=== PATIENT | female | born 1955 | race Caucasian/White ===

== ENCOUNTER 2018-12-13 21:45 | Emergency (ER) | payer BC, OTHER ==
[2018-12-13] MEDS ORDERED: METOCLOPRAMIDE HCL INJECTION 10 MG/2 ML VIAL IVPUSH ONE (21:52)
[2018-12-13 21:57] VITALS: BP 150/90; PULSE 88; TEMP 98; BMI 20.9
[2018-12-13] MEDS ORDERED: SODIUM CHLORIDE 0.9% 500 ML INFUS.BAG IV ONE ×2 (21:57→23:13)
[2018-12-13] MEDS ORDERED: METOCLOPRAMIDE HCL INJECTION 10 MG/2 ML VIAL ONE (22:03)
[2018-12-13 22:13] LABS: BASO % 0.6 % (0-2.0); EOS % 2.7 % (0-4.5); HEMATOCRIT 44.1 % (32.4-45.2); HEMOGLOBIN 14.3 GM/dl (10.7-15.3); LYMPH % 26.1 % (8-40); MCH 30.2 pg (25.7-33.7); MCHC 32.4 g/dl (32.0-36.0); MEAN CELL VOLUME 93.1 fl (80-96); MEAN PLT VOLUME 8.1 fl (7.5-11.1); MONO % 5.5 % (3.8-10.2); NEUT % 65.1 % (42.8-82.8); PLATELET COUNT 284 K/MM3 (134-434); RBC 4.74 M/mm3 (3.60-5.2); RDW 12.6 % (11.6-15.6); WHITE BLOOD COUNT 7.1 K/mm3 (4.0-10.8)
[2018-12-13 22:24] LABS: ACTIVATED PTT 30.5 SECONDS (25.2-36.5)
[2018-12-13 22:28] LABS: INR 1.08 (0.82-1.09); PROTHROMBIN TIME (PATIENT) 12.1 SEC (10.2-13.0)
[2018-12-13] MEDS ORDERED: ONDANSETRON 4 MG/2 ML VIAL IVPB ONE (22:33)
[2018-12-13] MEDS ORDERED: ONDANSETRON 4 MG/2 ML VIAL ONE (22:34)
[2018-12-13 22:39] LABS: ALBUMIN 4.3 g/dl (3.4-5.0); BILIRUBIN,TOTAL 0.8 mg/dl (0.2-1); CALCIUM 9.6 mg/dl (8.5-10); CREATININE 0.9 mg/dl (0.55-1.3); POTASSIUM 3.5 mmol/L (3.5-5.1); TOT PROT 7.4 g/dl (6.4-8.2)
[2018-12-13] MEDS ORDERED: PROCHLORPERAZINE INJECTION 10 MG/2 ML VIAL IVPB ONE (23:12)
[2018-12-13] MEDS ORDERED: DEXAMETHASONE SOD PHOSPHATE 10 MG/1 ML VIAL IVPUSH ONE (23:12)
[2018-12-13] MEDS ORDERED: PROCHLORPERAZINE INJECTION 10 MG/2 ML VIAL ONE (23:41)
[2018-12-13] MEDS ORDERED: DEXAMETHASONE SOD PHOSPHATE 10 MG/1 ML VIAL ONE (23:41)
--- NOTE | 2018-12-14 06:16 | PDOC ---
Documentation entered by Venecia Salmeron SCRIBE, acting as scribe for Daniel Martinez MD. Daniel Martinez MD: This documentation has been prepared by the Faviola valencia Xhesika, SCRIBE, under my direction and personally reviewed by me in its entirety. I confirm that the documentation accurately reflects all work, treatment, procedures, and medical decision making performed by me. History of Present Illness - General Chief Complaint: Pain, Acute Stated Complaint: HEADACHE, NAUSEA History Source: Patient Exam Limitations: No Limitations - History of Present Illness Initial Comments: 12/13/18 22:03 The patient is a 63 year old female, with no significant PMH of who presents to the emergency department with 2 hours of nausea and severe headache. The patient states she was walking through the park with her daughter, went home to see her and the difference between the heat and the air conditioner made her nauseous. The patient notes she endorsed multiple episodes of vomiting. The patient states she ate out a couple of times during the holiday weekend. The patient also notes she has been endorsing 4 days of RUQ dull pain that is associated with her doing pilates and is not a concern for her at the moment. The patient states she has never experienced a headache before. The patient denies chest pain, shortness of breath, dizziness. Denies fever, chills, diarrhea and constipation. Denies dysuria, frequency, urgency and hematuria. Allergies: Sulfa Past History - Past Medical History Allergies/Adverse Reactions: Allergies Allergy/AdvReac Type Severity Reaction Status Date / Time Sulfa (Sulfonamide Allergy Verified 12/13/18 21:46 Antibiotics) Home Medications: Ambulatory Orders NK [No Known Home Medication] 12/13/18 Review of Systems - Review of Systems Able to Perform ROS?: Yes Comments:: 12/13/18 22:06 GENERAL/CONSTITUTIONAL: No fever or chills. No weakness. HEAD, EYES, EARS, NOSE AND THROAT: No change in vision. No ear pain or discharge. No sore throat. CARDIOVASCULAR: No chest pain or shortness of breath. RESPIRATORY: No cough, wheezing, or hemoptysis. GASTROINTESTINAL: (+) nausea. (+) vomiting. No diarrhea or constipation. GENITOURINARY: No dysuria, frequency, or change in urination. MUSCULOSKELETAL: (+) RUQ pain. No joint or muscle swelling or pain. No neck or back pain. SKIN: No rash NEUROLOGIC: (+) headache. No vertigo, loss of consciousness, or change in strength/sensation. ENDOCRINE: No increased thirst. No abnormal weight change. HEMATOLOGIC/LYMPHATIC: No anemia, easy bleeding, or history of blood clots. ALLERGIC/IMMUNOLOGIC: No hives or skin allergy. *Physical Exam - Vital Signs Last Vital Signs Temp Pulse Resp BP Pulse Ox 98 F 88 16 150/90 98 12/13/18 21:48 12/13/18 21:48 12/13/18 21:48 12/13/18 21:48 12/13/18 21:48 - Physical Exam Comments: 12/13/18 22:06 GENERAL: Awake, alert, and fully oriented, in no acute distress HEAD: No signs of trauma EYES: PERRLA, EOMI, sclera anicteric, conjunctiva clear ENT: Auricles normal inspection, hearing grossly normal, nares patent, oropharynx clear without exudates. Moist mucosa NECK: Normal ROM, supple, no lymphadenopathy, JVD, or masses LUNGS: Breath sounds equal, clear to auscultation bilaterally. No wheezes, and no crackles HEART: Regular rate and rhythm, normal S1 and S2, no murmurs, rubs or gallops ABDOMEN: Soft, nontender, normoactive bowel sounds. No guarding, no rebound. No masses EXTREMITIES: Normal range of motion, no edema. No clubbing or cyanosis. No cords, erythema, or tenderness NEUROLOGICAL: Cranial nerves II through XII grossly intact. Normal speech, normal gait SKIN: Warm, Dry, normal turgor, no rashes or lesions noted. ED Treatment Course - LABORATORY CBC & Chemistry Diagram: 12/13/18 22:00 12/13/18 22:00 - ADDITIONAL ORDERS Additional order review: Laboratory Results 12/13/18 12/13/18 22:00 22:00 PT with INR 12.1 INR 1.08 PTT (Actin FS) 30.5 Sodium 141 Potassium 3.5 Chloride 104 Carbon Dioxide 27 Anion Gap 10 BUN 16.0 Creatinine 0.9 Est GFR (CKD-EPI)AfAm 78.87 Est GFR (CKD-EPI)NonAf 68.05 Random Glucose 112 H Calcium 9.6 Total Bilirubin 0.8 AST 22 ALT 23 Alkaline Phosphatase 69 Total Protein 7.4 Albumin 4.3 12/13/18 22:00 RBC 4.74 MCV 93.1 MCHC 32.4 RDW 12.6 MPV 8.1 Neutrophils % 65.1 Lymphocytes % 26.1 Monocytes % 5.5 Eosinophils % 2.7 Basophils % 0.6 - RADIOLOGY Radiology Studies Ordered: Category Date Time Status HEAD CT WITHOUT CONTRAST [CT] Stat CT Scan 12/13/18 21:51 Taken - Medications Given in the ED: ED Medications Discontinued Medications Generic Name Dose Route Start Last Admin Trade Name Alexandre PRN Reason Stop Dose Admin Dexamethasone Sodium Phosphate 10 mg 12/13/18 23:12 12/14/18 00:25 Decadron Injection - IVPUSH 12/13/18 23:13 10 mg ONCE ONE Administration Diphenhydramine HCl 25 mg 12/13/18 23:13 12/13/18 23:52 Benadryl Injection - IVPUSH 12/13/18 23:14 25 mg ONCE ONE Administration Metoclopramide HCl 10 mg 12/13/18 21:52 12/13/18 22:06 Reglan Injection - IVPUSH 12/13/18 21:53 10 mg ONCE ONE Administration Ondansetron HCl 8 mg 12/13/18 22:33 12/13/18 22:39 Zofran Injection IVPB 12/13/18 22:34 8 mg ONCE ONE Administration Prochlorperazine Edisylate 10 mg 12/13/18 23:12 12/13/18 23:51 Compazine Injection - IVPB 12/13/18 23:13 10 mg ONCE ONE Administration Sodium Chloride 1,000 ml 12/13/18 21:57 12/13/18 22:00 Normal Saline - IV 12/13/18 21:58 1,000 ml ONCE ONE Administration Sodium Chloride 1,000 ml 12/13/18 23:13 12/13/18 23:51 Normal Saline - IV 12/13/18 23:14 1,000 ml ONCE ONE Administration Medical Decision Making - Medical Decision Making 12/14/18 06:16 ? migraine new onset severe stokes requires consideration of vascular emergency; normal head ct < 6 hours excludes this treated for migraine with resolution of headache and nausea *DC/Admit/Observation/Transfer Diagnosis at time of Disposition: Migraine Qualifiers: Migraine type: without aura Status migrainosus presence: without status migrainosus Intractability: not intractable Qualified Code(s): G43.009 - Migraine without aura, not intractable, without status migrainosus - Discharge Dispostion Disposition: HOME Condition at time of disposition: Stable - Referrals - Patient Instructions Printed Discharge Instructions: DI for Migraine - Post Discharge Activity
== END 2018-12-14 00:51 | disposition home or self-care (01) ==
LOC: FER 21:45
PROC: 3E0337Z Introduction of Electrolytic and Water Balance Substance into Peripheral Vein, Percutaneous Approach (ICD-10-PCS; principal; 2018-12-13)
PROC: 3E033GC Introduction of Other Therapeutic Substance into Peripheral Vein, Percutaneous Approach (ICD-10-PCS; 2018-12-13)
DX: G43.009 Migraine without aura, not intractable, without status migrainosus (principal)
CPT/HCPCS: 36415; 70450-TC; 80053; 85025; 85610; 85730; 99281-25; J1100

== ENCOUNTER 2022-03-23 19:56 | Emergency (ER) | payer OTHER ==
[2022-03-23 20:15] VITALS: BP 141/78; PULSE 90; RESP 16; TEMP 97.9; BMI 20.5
== END 2022-03-23 20:40 | disposition home or self-care (01) ==
LOC: FER 19:56
DX: M62.838 Other muscle spasm (principal)
CPT/HCPCS: 99281-25